=== PATIENT | female | born 1985 | race Caucasian/White ===

== ENCOUNTER 2021-11-02 17:24 | Emergency (ER) | payer MEDICAID, SELFPAY ==
[2021-11-02] MEDS ORDERED: Acetaminophen 500 MG TAB ONE (17:55)
[2021-11-02] MEDS ORDERED: Sodium Chloride 0.9% 1,000 ML ONE (17:55)
[2021-11-02 18:10] LABS: Chloride 106 mmol/L (98-107); Potassium 3.8 mmol/L (3.5-5.1); Sodium 138 mmol/L (136-145)
[2021-11-02 18:23] LABS: ALT (SGPT) 85 U/L (8-55); AST (SGOT) 24 U/L (5-34); Albumin 2.8 g/dL (3.5-5.0); Alkaline Phosphatase 171 U/L (40-110); BUN (Urea Nitrogen) 10 mg/dL (7.0-18.7); Bilirubin, Total 0.2 mg/dL (0.2-1.2); Calc. Creatinine Clearance 0 mL/min (70-130); Carbon Dioxide 19 mmol/L (22-29); Globulin 3.3 g/dL (2.4-3.5); Glucose 89 mg/dL (70-105); Protein, Total 6.1 g/dL (6.0-8.3)
[2021-11-02 18:24] LABS: Anion Gap 17 mmol/L (10-20)
[2021-11-02 18:25] LABS: Band 5 % (5-11); Eosinophils 2 % (0-10); Hemoglobin 9.4 g/dL (12.0-16.0); Lymphocytes 16 % (21-51); MDiff Complete? YES; Mean Corpuscular HGB CONC 29.2 g/dL (32.0-36.0); Mean Corpuscular Hemoglobin 23.4 pg (27.0-31.0); Mean Corpuscular Volume 80.2 fL (78.0-98.0); Mean Platelet Volume 9.1 fL (7.4-10.4); Monocytes 5 % (0-10); Neutrophil 70 % (42-75); Platelet Count 177 thou/uL (130-400); Platelet Morphology Comment Appears Adequate; RBC Distribution Width 15.8 % (11.5-14.5); Reactive Lymphocytes 2 % (0-10); White Blood Cell (WBC) Count 6.1 thou/uL (4.8-10.8)
[2021-11-03 18:54] LABS: SARS-CoV-2 PCR by NAA Not Detected (NotDetected)
== END 2021-11-02 19:02 | disposition home or self-care (01) ==
LOC: NAV ERS 17:24
DX: R50.9 Fever, unspecified (principal); R51.9 Headache, unspecified; R06.02 Shortness of breath; R11.0 Nausea; R05.9 Cough, unspecified; D64.9 Anemia, unspecified; F17.290 Nicotine dependence, other tobacco product, uncomplicated; Z20.822 Contact with and (suspected) exposure to COVID-19
CPT/HCPCS: 71046; 80053; 83880; 84484; 85025; 87804; 93005; 94760; J7050; U0003; U0005